=== PATIENT | male | born 1995 | race Hispanic/Latino ===

== ENCOUNTER 2018-08-04 22:54 | Emergency (ER) | payer OTHER ==
[2018-08-04] MEDS ORDERED: CYCLOBENZAPRINE HCL 10 MG TABLET ONE (23:51)
[2018-08-04] MEDS ORDERED: ACETAMINOPHEN EXTRA STRENGTH 500 MG TABLET ONE (23:51)
== END 2018-08-05 00:50 ==
LOC: EDH 22:54
DX: S00.83XA Contusion of other part of head, initial encounter (principal); G44.209 Tension-type headache, unspecified, not intractable; Z72.0 Tobacco use; X58.XXXA Exposure to other specified factors, initial encounter; Y93.89 Activity, other specified; Y92.89 Other specified places as the place of occurrence of the external cause; Y99.8 Other external cause status